=== PATIENT | female | born 2005 | race Caucasian/White ===

== ENCOUNTER 2025-03-14 12:10 | Emergency (ER) | payer MEDICAID, SELFPAY ==
--- NOTE | ~2025-03-14 | US_ITS ---
EXAMINATION: US OBSTETRICAL ULTRASOUND CLINICAL INFORMATION: Lower abdominal pain, positive beta hCG COMPARISON: None available. LMP: Unknown. TECHNIQUE: Transabdominal and transvaginal grayscale and color Doppler imaging was obtained FINDINGS: There is a single intrauterine gestational sac with a double decidual sign. There is a faint probable yolk sac. There are no visible parts. Mean sac diameter measured 15 mm. Estimated age 6 weeks 2 days by ultrasound MATERNAL ADNEXA: The right maternal ovary measures 2.6 x 1.8 x 1.2 cm. The left maternal ovary measures 4.6 x 3.2 x 3.4 cm. There is a 2.4 x 2.7 x 2.8 cm cyst within internal septations. There is no significant maternal adnexal mass. No maternal pelvic ascites. US/US OB pelvic and transvaginal IMPRESSION: 1. Single intrauterine gestation with ultrasound age of 6 weeks 2 days. Yolk sac is faint and there are no visible parts. Recommend short interval follow-up. Electronically signed by: Leonid Zavala MD 03/14/2025 05:20 PM EDT
[2025-03-14 12:37] VITALS: BP 119/75; PULSE 78; RESP 16; TEMP 36.7; O2SAT 100; BMI 36.0
--- NOTE | 2025-03-14 12:40 | ED.GENADULT ---
HPI - General Adult General Chief complaint: Abdominal Pain Stated complaint: Low Abdominal Pain Headache Etc Time Seen by Provider: 03/14/25 18:57 Source: patient Mode of arrival: ambulatory Limitations: no limitations History of Present Illness ED Provider: Miguel Reynolds [facility] narrative: 19 yold female presents to the ED for lower abdominal pain, painful urination, and headache for the past 2 days. Patient denies any vaginal discharge, vaginal bleeding, flank pain, fever, or chills. Related Data Previous Rx's ?Medication ?Instructions ?Recorded cephalexin 500 mg capsule 500 mg PO QID #28 caps 03/14/25 vits no.130-ferrous fum 1 tab PO DAILY #30 tabs 03/14/25 27 mg iron-folic acid 800 mcg tablet ( Vitamin) Allergies Allergy/AdvReac Type Severity Reaction Status Date / Time No Known Allergies Allergy Verified 03/14/25 12:38 Review of Systems Review of Systems: lower abdominal pain, painful urination, headache Yes all other systems are reviewed and are negative [facility] Social History Social History Advance Directives: No Advance Directives Information Provided: Yes Do you have a plan to hurt others: No Plan Physical Exam ED Vital Signs: Vital Signs - 24 hr 03/14/25 12:37 Temperature 98.1 F Pulse Rate 78 Respiratory Rate 16 Blood Pressure 119/75 Pulse Oximetry 100 Oxygen Delivery Method Room Air BMI result Body Mass Index 36.0 Const General: cooperative, healthy appearing, comfortable, no acute distress, well developed, alert, awake and Physically active Orientation/consciousness: patient oriented x3 HENMT Head: Yes normal to inspection, Yes No palpable skull fracture present, Yes normocephalic and Yes atraumatic Ears: hearing grossly normal bilaterally, external ears normal, TM's normal bilaterally, TM normal on the right, TM normal on the left, EAC's normal, mastoids normal and no periauricular adenopathy Throat: Yes posterior oropharynx normal, Yes tonsils normal and Yes uvula midline Eyes General: appearance normal, both eyes and all related structures Neck Neck: Yes normal visual inspection, Yes full ROM, Yes no lymphadenopathy, Yes no meningeal signs, Yes trachea midline, Yes supple, No anterior neck swelling and No tender Chest Chest palpation & inspection: normal inspection of the chest and normal palpation of entire chest wall Resp Effort & Inspection: normal respiratory effort and able to speak in complete sentences Auscultation: clear to auscultation bilaterally Cardio Jugular venous distension: no JVD Heart sounds: S1 normal heart sound present and S2 normal heart sound present GI Inspection: Yes normal to inspection Palpation (GI): Soft to palpation, not firm, nontender, no guarding and not rigid General: Yes no CVA tenderness Back/Spine/Pelvis Back: no CVA tenderness and No back tenderness Skin General skin exam: no rashes or lesions noted, elasticity normal and turgor normal Neuro General: patient oriented x3, gait normal, tone normal, moves all extremities, Normal light touch and pain sensation, no meningeal signs, no focal motor deficits, CN's II-XI intact bilaterally and normal sensation to monofilament Extrem General: Yes normal to inspection, Yes full ROM and Yes capillary refill normal Psych Appearance: grossly normal, well kempt and not disheveled Course Course Course Narrative: SERGE; 19-year-old female presents to ED for lower abdominal pain suprapubic area. Patient states dysuria and headache. Patient denies any chest pain, shortness of breath, flank pain, fever or chills. Labs UA ordered Medical Decision Making Medical Decision Making [facility] Narrative: 19 yold female presents to the ED for slight abdominal discomfort and dysuria. Patient denies any flank pain, vaginal bleeding, vaginal discharge, nausea, fever, chills or vomiting. Patient is found to be . UA shows small UTI. Ultrasound shows early IUP. Patient explained signs of ectopic or threatened and informed to return to the ED immediately. Patient would like to be discharged does not want to wait any longer for pelvic exam. Differential Diagnosis Differential Diagnoses: The differential diagnosis associated with the presentation includes (UTI, Kidney stones, .) Admission/Observation Consideration of admission/observation: Escalation of care including admission/observation considered Lab Data [facility] Lab Attestation statement: I reviewed the patient's lab results. 03/14/25 13:21 03/14/25 13:21 Labs: Lab Results 03/14/25 03/14/25 Range/Units 13:21 13:33 WBC 8.8 (4.8-10.8) X10*3/uL RBC 4.78 (4.20-5.50) X10*6/uL Hgb 14.1 (12.0-16.0) g/dl Hct 41.5 (37.0-47.0) % MCV 86.8 (80.0-98.0) fL MCH 29.5 (27.0-33.0) pg MCHC 34.0 (31.0-35.0) g/dl RDW 12.7 (11.0-16.0) % Plt Count 258 (160-400) X10*3/uL MPV 8.6 L (9.4-12.3) fL Immature Gran % (Auto) 0.2 (0.0-0.4) % Neut % (Auto) 61.5 (45-73) % Lymph % (Auto) 30.3 (20-40) % Ida % (Auto) 7.5 (2-11) % Eos % (Auto) 0.3 (0-4) % Baso % (Auto) 0.2 (0-2) % Lymph # (Auto) 2.7 (1.2-4.9) X10*3/uL Ida # (Auto) 0.7 (0.1-1.2) X10*3/uL Eos # (Auto) 0.0 (0.0-0.4) X10*3/uL Baso # (Auto) 0.0 (0.0-0.2) X10*3/uL Abs Immat Gran (auto) 0.02 (0.00-0.03) X10*3/uL Absolute Neuts (auto) 5.4 (2.0-8.3) x10*3/uL Absolute Nucleated RBC 0.000 (0.0-0.012) X10*3/uL Nucleated RBC % (auto) 0.0 (0.0-0.2) /100WBC Sodium 138 (135-145) mmol/L Potassium 3.7 (3.3-5.1) mmol/L Chloride 105 (96-108) mmol/L Carbon Dioxide 24 (22-29) mmol/L Anion Gap 13 (12-20) BUN 8 L (9-16) mg/dL Creatinine 0.64 (0.5-1.4) mg/dL Estim Creat Clear Calc 161.2 Estimated GFR > 60 Random Glucose 81 (60-115) mg/dL Calcium 9.6 (8.4-10.2) mg/dL Total Bilirubin 0.5 (0.0-1.0) mg/dL AST 21 (5-31) U/L ALT 30 (0-31) U/L Alkaline Phosphatase 42 (39-117) U/L Total Protein 7.7 (6.5-8.0) g/dL Albumin 5.0 (3.5-5.0) g/dL Beta HCG, Quant 99694 mIU/mL Urine Color Dark Yellow Urine Appearance Cloudy Urine pH 6.0 (5.0-9.0) Ur Specific Tie Siding >= 1.030 H (1.005-1.025) Urine Protein 30 (1+) H (Neg-Trace) mg/dL Urine Glucose (UA) Negative (Negative) mg/dL Urine Ketones >=160 (Negative) mg/dL Urine Blood Trace H (Negative) Urine Nitrite Negative (Negative) Ur Leukocyte Esterase Large (3+) H (Negative) Urine RBC 3-5 H (0-2) /HPF Urine WBC 6-10 (0-5) /HPF Ur Squamous Epith Cells 6-10 (0-2) /HPF Urine Bacteria 2+ (None Seen) Hyaline Casts 0-2 (0-2) /LPF Urine Test POSITIVE H (NEGATIVE) Independent Interpretation I performed an independent interpretation of an: Ultrasound Radiology Impression Discussion of test interpretation with radiology: I have reviewed the radiologist's reading. Independent Historian Clinical information obtained from an independent historian. History obtained from or confirmed by: Other (patient) Prescription Management I considered prescription management with: Antibiotic Discharge Plan Discharge Clinical Impression: , UTI (urinary tract infection) Patient Disposition: Home, Self-Care Instructions: (ED), Urinary Tract Infection in Women (ED) Additional Instructions: You were seen in our Emergency Department for an early test being positive and abdominal pain/and or vaginal bleeding. It is very early on and your symptoms require repeat testing and monitoring. Your initial ultrasound did not confirm a in your uterus. You need repeat testing of your blood test (hcg) in 48 hours. Another Ultrasound may also need to be done in 5 days, this should be determined by your outpatient provider. These tests can be done at your primary care office, OBGYN office, or the Emergency Department if you cannot reach your outside providers. After discharge please monitor your symptoms and seek immediate care for bleeding heavier than a period, severe abdominal pain, fainting, or any other concerns. Please see list of local OBGYN providers below: O[facility]YN and Midwifery [facility] [place] [address] [phone] [facility] [address] [phone] OBGYN and Midw[facility]ery [facility] [address] [phone] [phone] EXAMINATION: US OBSTETRICAL ULTRASOUND CLINICAL INFORMATION: Lower abdominal pain, positive beta hCG COMPARISON: None available. LMP: Unknown. TECHNIQUE: Transabdominal and transvaginal grayscale and color Doppler imaging was obtained FINDINGS: There is a single intrauterine gestational sac with a double decidual sign. There is a faint probable yolk sac. There are no visible parts. Mean sac diameter measured 15 mm. Estimated age 6 weeks 2 days by ultrasound MATERNAL ADNEXA: The right maternal ovary measures 2.6 x 1.8 x 1.2 cm. The left maternal ovary measures 4.6 x 3.2 x 3.4 cm. There is a 2.4 x 2.7 x 2.8 cm cyst within internal septations. There is no significant maternal adnexal mass. No maternal pelvic ascites. US/US OB pelvic and transvaginal IMPRESSION: 1. Single intrauterine gestation with ultrasound age of 6 weeks 2 days. Yolk sac is faint and there are no visible parts. Recommend short interval follow-up. Electronically signed by: Leonid Zavala MD 03/14/2025 05:20 PM EDT Prescriptions: New cephalexin 500 mg capsule 500 mg PO QID Qty: 28 0RF Vitamin 27 mg iron- 800 mcg tablet 1 tab PO DAILY Qty: 30 0RF Stand Alone Forms: Work/School Release Interventions: ED Discharge Assessment Last Done: 03/14/25 19:21 Discharge Date/Time: 03/14/25 19:21 Print Language: Tamazight
[2025-03-14 13:25] LABS: MANUAL DIFF FLAG NO
[2025-03-14 13:26] LABS: Basophils Percent Auto 0.2 % (0-2); Eosinophils Percent Auto 0.3 % (0-4); Hematocrit 41.5 % (37.0-47.0); Hemoglobin 14.1 g/dl (12.0-16.0); Imm Gran Abs Auto 0.02 X10*3/uL (0.00-0.03); Imm Gran Pct Auto 0.2 % (0.0-0.4); Lymphocytes Absolute Auto 2.7 X10*3/uL (1.2-4.9); Lymphocytes Percent Auto 30.3 % (20-40); Mean Corpuscular Hemoglobin 29.5 pg (27.0-33.0); Mean Corpuscular Volume 86.8 fL (80.0-98.0); Mean Platelet Volume 8.6 fL (9.4-12.3); Monocytes Absolute Auto 0.7 X10*3/uL (0.1-1.2); Monocytes Percent Auto 7.5 % (2-11); Neutrophils Absolute Auto 5.4 x10*3/uL (2.0-8.3); Neutrophils Percent Auto 61.5 % (45-73); Platelet Count 258 X10*3/uL (160-400); Red Blood Count 4.78 X10*6/uL (4.20-5.50); Red Cell Distribution Width 12.7 % (11.0-16.0); White Blood Count 8.8 X10*3/uL (4.8-10.8)
[2025-03-14 13:40] LABS: Appearance Urine Cloudy; Color Urine Dark Yellow; Glucose Urine UA Negative (Negative); Leukocyte Esterase Urine Large (3+) (Negative); Nitrite Urine Negative (Negative); Specific Gravity - Urine >= 1.030 (1.005-1.025); UMIC TRIGGER UACC YES; Urine Blood Trace (Negative); Urine Ketones >=160 mg/dL (Negative); Urine Protein 30 (1+) mg/dL (Neg-Trace)
[2025-03-14 13:42] LABS: UPreg QC Valid YES; Urine Pregnancy POSITIVE (NEGATIVE)
[2025-03-14 13:53] LABS: Alanine Aminotransferase 30 U/L (0-31); Alkaline Phosphatase 42 U/L (39-117); Anion Gap 13 (12-20); Aspartate Amino Transferase 21 U/L (5-31); Bilirubin Total 0.5 mg/dL (0.0-1.0); Blood Urea Nitrogen 8 mg/dL (9-16); Calcium 9.6 mg/dL (8.4-10.2); Carbon Dioxide 24 mmol/L (22-29); Chloride 105 mmol/L (96-108); Creatinine Clr Calc Pharmacy 161.2; Estimated Glomerular Filt Rate > 60; Glucose Random 81 mg/dL (60-115); Potassium 3.7 mmol/L (3.3-5.1); Sodium 138 mmol/L (135-145); Total Protein 7.7 g/dL (6.5-8.0)
[2025-03-14 13:53] LABS: Bacteria Urine 2+ (None Seen); Hyaline Casts Urine 0-2 /LPF (0-2); UACC Culture Trigger YES
[2025-03-14 14:19] LABS: HCG Quantitative 23617 mIU/mL
[2025-03-14 19:21] VITALS: BP 119/75; PULSE 78; RESP 16; TEMP 36.7; O2SAT 100
== END 2025-03-14 19:21 | disposition home or self-care (01) ==
PROVIDERS: Physician Assistant; Emergency Provider Emergency Medicine Emergency Medical Services
DX: O23.41 Unspecified infection of urinary tract in pregnancy, first trimester (principal); N39.0 Urinary tract infection, site not specified; Z3A.01 Less than 8 weeks gestation of pregnancy
CPT/HCPCS: 36415; 76801; 76817; 80053; 81001; 81025; 84702; 85025; 87086; 99282; 99284

== ENCOUNTER → 2025-03-14 15:12 | Outpatient (BNV) | payer MEDICAID, SELFPAY | PROVIDERS: Visit Provider Radiology Diagnostic Radiology | DX: O26.891 Other specified pregnancy related conditions, first trimester (principal); R10.30 Lower abdominal pain, unspecified; Z3A.01 Less than 8 weeks gestation of pregnancy | CPT/HCPCS: 76817 ==